=== PATIENT | female | born 1995 | race American Indian/Alaskan Native ===

== ENCOUNTER 2020-01-27 17:13 | Emergency (ER) | payer SELFPAY ==
--- NOTE | 2020-01-27 17:32 | Emergency Department Report ---
<DANIELA VASQUEZ III - Last Filed: 01/27/20 20:26> ED Psych HPI - General Chief Complaint: Psych Stated Complaint: SUICIDAL Time Seen by Provider: 01/27/20 17:27 Source: patient, EMS Mode of arrival: Ambulatory Limitations: No Limitations - History of Present Illness Initial Comments: Patient is a 25-year-old female that presents emergency room with complaints of suicidal ideations and depression. Patient states that she bought ibuprofen today with the intent to overdose. Patient states that instead of taking the ibuprofen, the patient called EMS for help. Patient states she has been depressed. Patient states her depression is worsening. Patient states 3 weeks ago she had a miscarriage at 3-month-old. Patient states she was diagnosed with depression many years ago and took medications but was able to come off the medications. Patient states that her depression been going on for the last month. Patient states today is her birthday and is making everything worse. Patient states she is also been having relationship problems with her boyfriend. Patient denies anxiety. Patient denies homicidal ideations. Patient denies hallucinations. Patient denies recent travel. Patient denies recent international travel. Patient denies exposure to the novel coronavirus. Patient denies sick contacts. Patient denies fever and chills. Patient denies cough. Patient denies diarrhea. Patient denies coming in contact with anybody with symptoms of the novel coronavirus. MD Complaint: suicidal ideation, feels depressed -: Sudden Associated Psychiatric Symptoms: depression, suicidal ideation History of same: No Quality: constant Improves With: none Worsens With: none Context: significant life stressor Associated Symptoms: denies other symptoms. denies: confusion, headache, rafiq rtness of breath, nausea, vomiting, syncope, insomnia Treatments Prior to Arrival: placed on mental he If Self Harm: admits thoughts of, has plan - Related Data Previous Rx's Medication Instructions Recorded Last Taken Type Famotidine [Pepcid] 40 mg PO QHS #30 tablet 06/18/13 Unknown Rx hydrOXYzine HCL [Atarax] 25 mg PO Q6HR PRN #20 tablet 06/18/13 Unknown Rx predniSONE [Deltasone] 50 mg PO QDAY #5 tab 06/18/13 Unknown Rx Ferrous Sulfate [Feosol 325 MG tab] 325 mg PO BID #60 tablet 11/10/15 Unknown Rx Ibuprofen [Motrin 600 MG tab] 600 mg PO Q6H PRN #30 tablet 11/10/15 Unknown Rx Vit-Fe Fumar-FA [ 1 each PO QDAY #30 tablet 11/10/15 Unknown Rx Vitamin] oxyCODONE /ACETAMINOPHEN [Percocet 1 tab PO Q6HR PRN #20 tablet 11/10/15 Unknown Rx 5/325] Sertraline [Zoloft] 50 mg PO QDAY #30 tablet 01/28/20 Unknown Rx Allergies Allergy/AdvReac Type Severity Reaction Status Date / Time No Known Allergies Allergy Verified 11/08/15 15:04 ED Review of Systems Constitutional: denies: chills, fever Eyes: denies: eye pain, eye discharge, vision change ENT: denies: ear pain, throat pain Respiratory: denies: cough, shortness of breath, wheezing Cardiovascular: denies: chest pain, palpitations Endocrine: no symptoms reported Gastrointestinal: denies: abdominal pain, nausea, diarrhea Genitourinary: denies: urgency, dysuria, discharge Musculoskeletal: denies: back pain, joint swelling, arthralgia Skin: denies: rash, lesions Neurological: denies: headache, weakness, paresthesias Psychiatric: depression, suicidal thoughts. denies: anxiety, auditory hallucinations, visual hallucinations, homicidal thoughts Hematological/Lymphatic: denies: easy bleeding, easy bruising ED Past Medical Hx - Past Medical History Previous Medical History?: Yes Hx Hypertension: No Hx Congestive Heart Failure: No Hx Diabetes: No Hx Deep Vein Thrombosis: No Hx Renal Disease: No Hx Sickle Cell Disease: No Hx Seizures: No Hx Psychiatric Treatment: Yes (adhd, depression) Hx Asthma: No Hx COPD: No - Surgical History Past Surgical History?: No - Family History Family history: no significant - Social History Smoking Status: Never Smoker Substance Use Type: None - Medications Home Medications: Home Medications Medication Instructions Recorded Confirmed Last Taken Type Famotidine [Pepcid] 40 mg PO QHS #30 tablet 06/18/13 11/09/15 Unknown Rx hydrOXYzine HCL [Atarax] 25 mg PO Q6HR PRN #20 tablet 06/18/13 11/09/15 Unknown Rx predniSONE [Deltasone] 50 mg PO QDAY #5 tab 06/18/13 11/09/15 Unknown Rx Ferrous Sulfate [Feosol 325 MG tab] 325 mg PO BID #60 tablet 11/10/15 Unknown Rx Ibuprofen [Motrin 600 MG tab] 600 mg PO Q6H PRN #30 tablet 11/10/15 Unknown Rx Vit-Fe Fumar-FA [ 1 each PO QDAY #30 tablet 11/10/15 Unknown Rx Vitamin] oxyCODONE /ACETAMINOPHEN [Percocet 1 tab PO Q6HR PRN #20 tablet 11/10/15 Unknown Rx 5/325] Sertraline [Zoloft] 50 mg PO QDAY #30 tablet 01/28/20 Unknown Rx ED Physical Exam - General General appearance: alert, in no apparent distress - Head Head exam: Present: atraumatic, normocephalic - Eye Eye exam: Present: normal appearance - ENT ENT exam: Present: mucous membranes moist - Neck Neck exam: Present: normal inspection - Respiratory Respiratory exam: Present: normal lung sounds bilaterally. Absent: respiratory distress - Cardiovascular Cardiovascular Exam: Present: regular rate, normal rhythm. Absent: systolic murmur, diastolic murmur, rubs, gallop - GI/Abdominal GI/Abdominal exam: Present: soft, normal bowel sounds - Extremities Exam Extremities exam: Present: normal inspection - Back Exam Back exam: Present: normal inspection - Neurological Exam Neurological exam: Present: alert, oriented X3 - Psychiatric Psychiatric exam: Present: depressed, suicidal ideation. Absent: anxious, flat affect, manic, homicidal ideation - Skin Skin exam: Present: warm, dry, intact, normal color. Absent: rash ED Course - Reevaluation(s) Reevaluation #1: Initial evaluation is done. Patient placed on a ER hold. Patient will have labs done. Patient agrees with plan of care. 01/27/20 17:30 Reevaluation #2: Patient denies abdominal pain. Patient states she still having bleeding from her miscarriage. Patient states she is already seen ADULT DAYCARE COORDINATOR for her miscarriage. Patient will have a serum hCG. 01/27/20 19:06 Reevaluation #3: Patient states she wants to leave. Patient put her clothes back on. Patient's belongings were in her room and she got dressed again. Patient placed on a 1013 presents the patient is trying to leave. Security has been called and the nurse has been made aware. Patient is medically cleared. Patient's final disposition will come from our psychiatry and to health team. Patient will remain in the ER as an ER hold. 01/27/20 20:27 ED Medical Decision Making - Lab Data Result diagrams: 01/27/20 17:38 01/27/20 17:38 - Medical Decision Making Patient is a 25-year-old female that presents emergency room with complaints of suicidal ideation with a plan. Patient states she plans on taking ibuprofen. Patient states she brought the ibuprofen but never went through to taking it. Patient states just before taken she called EMS to come to the hospital to get help. Patient had labs done. Patient's labs are essentially unremarkable except for elevated serum hCG. Patient had a recent miscarriage. Patient started being followed by ADULT DAYCARE COORDINATOR. Patient's medically cleared. Patient remained in the ER as an ER hold until the patient's final disposition comes from our psychiatry team. While the patient was in the ER, the patient requested to leave and put her clothes back on as her belongings were still in the patient's room. Patient was then placed on a 1013. - Differential Diagnosis Depression, suicidal ideation, suicidal ideation with a plan. ED Disposition Clinical Impression: History of one miscarriage, Passive suicidal ideations, Dysfunctional grieving Disposition: DC-01 TO HOME OR SELFCARE Is pt being admited?: No Does the pt Need Aspirin: No Condition: Stable Additional Instructions: Outpatient [facility] Behavioral Health Resources: [facility] [address] [place] [address] / Thursday thru Thursday - 8am - 5pm [facility] Address: [address] [place] [address] Thursday thru Thursday- 7am-2pm [facility] Address: [address] [place] [address] Thursday thru Thursday: 8:30AM-5PM [place]IS[place]OURCES [place] Crisis Line: Suicide Prevention Line: Crisis Text Line: Text START to [phone] Emergency: 911 Prescriptions: Sertraline [Zoloft] 50 mg PO QDAY #30 tablet Referrals: PRIMARY CARE, [Primary Care Provider] - 3-5 Days Time of Disposition: 20:31 <KIKO MATIAS - Last Filed: 01/28/20 12:57> ED Review of Systems ROS: Stated complaint: SUICIDAL Other details as noted in HPI ED Course Vital Signs 01/27/20 01/27/20 01/28/20 18:10 22:24 02:09 Temperature 98.0 F 97.7 F Pulse Rate 72 70 Respiratory 18 18 16 Rate Blood Pressure 118/68 110/59 [Left] O2 Sat by Pulse 100 100 99 Oximetry 01/28/20 07:49 Temperature 98.0 F Pulse Rate 82 Respiratory 16 Rate Blood Pressure 118/60 [Left] O2 Sat by Pulse 98 Oximetry - Reevaluation(s) Reevaluation #4: Patient was seen by our mental health assessment team. Their plan is as follows 01/28/20 12:53 Assessment and Plan - Psychiatric problem (1) Dysfunctional grieving Current Visit: Yes Status: Acute Treatment Plan Concern for patner intimate voilence but patient denies acute safety concerns. Will restart Zoloft and safety discharge MEDICATIONS: Risks, benefits and alternatives of medications discussed with the patient, questions answered and consent obtained from patient. PSYCHOTHERAPY: Supportive psychotherapy provided MEDICAL: Per primary team DELIRIUM PRECAUTIONS: Please re-orient patient frequently, keep lights on during the day, and minimize benzodiazepines and opiates as these medications could worsen patient's confusion. RIVER CROSSING SUPERVISOR: DISPOSITION: Do Not Recommend acute inpatient psychiatric hospitalization at this time. Safety discharge LEGAL STATUS: 1013 rescinded FOLLOW-UP: Will sing off Thank you for the consult. Please contact with any questions and/or concerns. ED Medical Decision Making - Lab Data Result diagrams: 01/27/20 17:38 01/27/20 17:38 - Medical Decision Making Patient is a 25-year-old female who is presenting with some dysfunctional grieving after the loss of her . Patient has not had great support for significant other. Patient started on Zoloft. Patient is contracted for safety and started on Zoloft will be discharged home. Critical care attestation.: If time is entered above; I have spent that time in minutes in the direct care of this critically ill patient, excluding procedure time. ED Disposition Is pt being admited?: No Does the pt Need Aspirin: No
[2020-01-27 17:54] LABS: Basophils % (Auto) 0.5 % (0.0-1.8); Eosinophils # (Auto) 0.1 K/mm3 (0.0-0.4); Eosinophils % (Auto) 0.8 % (0.0-4.3); Hematocrit 33.2 % (30.3-42.9); Hemoglobin 11.5 gm/dl (10.1-14.3); Lymphocytes # (Auto) 2.1 K/mm3 (1.2-5.4); Lymphocytes % (Auto) 23.1 % (13.4-35.0); Mean Corpuscular HGB Conc 35 % (30-34); Mean Corpuscular Volume 78 fl (79-97); Monocytes # (Auto) 0.6 K/mm3 (0.0-0.8); Monocytes % (Auto) 6.3 % (0.0-7.3); Platelet Count 223 K/mm3 (140-440); Red Blood Count 4.29 M/mm3 (3.65-5.03); Red Cell Distribution Width 18.2 % (13.2-15.2)
[2020-01-27 18:18] LABS: Alanine Aminotransferase 21 units/L (7-56); Albumin 3.9 g/dL (3.9-5); Blood Urea Nitrogen 10 mg/dL (7-17); Calcium 9.2 mg/dL (8.4-10.2); Hemolysis Index 8
[2020-01-27 18:25] LABS: BUN/Creatinine Ratio 17
[2020-01-27 20:50] LABS: Bilirubin,Urine NEG (Negative); Blood,Urine LG (Negative); Color,Urine Yellow (Yellow); Mucus,Urine FEW /HPF; Protein,Urine <15 mg/dL mg/dL (Negative)
[2020-01-27 21:01] LABS: Amphetamine Screen,Urine PRESUMPTIVE NEGATIVE; Benzodiazepines Screen,Urine PRESUMPTIVE NEGATIVE; Cannabinoid Screen,Urine PRESUMPTIVE NEGATIVE; Cocaine Screen,Urine PRESUMPTIVE NEGATIVE; Methadone Screen,Urine PRESUMPTIVE NEGATIVE; Opiate Screen,Urine PRESUMPTIVE NEGATIVE
[2020-01-28 07:51] VITALS: BP 118/60
[2020-01-28] MEDS ORDERED: SERTRALINE 50 MG TAB PO STA (11:55)
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
== END 2020-01-28 13:26 | disposition home or self-care (01) ==
LOC: ED 17:13 → EEVIPCON 17:13 → ED 01-28 13:26
DX: F43.21 Adjustment disorder with depressed mood (principal); R45.851 Suicidal ideations; F32.9 Major depressive disorder, single episode, unspecified; Z87.59 Personal history of other complications of pregnancy, childbirth and the puerperium; Z79.899 Other long term (current) drug therapy
CPT/HCPCS: 36415; 80053; 80307; 80320; 81001; 84443; 84702; 84703; 85025; 87086; G0480